=== PATIENT | male | born 1940 | race Caucasian/White ===

== ENCOUNTER 2018-10-02 10:02 | Day surgery (SDC) | payer OTHER, MEDICAID ==
[2018-09-23 15:34] LABS: ANION GAP 10 (5-15); CALCIUM 9.2 mg/dL (8.4-11.0); CHLORIDE 101 mmol/L (98-107); CREATININE 1.44 mg/dL (0.55-1.30); GLUCOSE 150 mg/dL (70-99); POTASSIUM 3.9 mmol/L (3.5-5.1); SODIUM SERUM 137 mmol/L (136-145); UREA NITROGEN, BLOOD 27 mg/dL (8-21)
[2018-09-23 15:59] LABS: BILIRUBIN,URINE NEGATIVE (NEGATIVE); BLOOD, URINE NEGATIVE (NEGATIVE); CLARITY/URINE CLEAR (CLEAR); COLOR,URINE YELLOW (YELLOW); GLUCOSE,URINE NEGATIVE (NEGATIVE); KETONES,URINE NEGATIVE (NEGATIVE); LEUKOCYTE ESTERASE ,URINE NEGATIVE (NEGATIVE); NITRITE, URINE NEGATIVE (NEGATIVE); PROTEIN URINE NEGATIVE (NEGATIVE); UROBILINOGEN,URINE 0.2 (0.2-1.0)
[2018-09-23 16:10] LABS: BASOPHILS % (AUTO) 0.4 % (0.0-2.0); EOSINOPHILS # (AUTO) 0.4 K/uL (0.0-0.4); HEMATOCRIT 43.8 % (36-54); HEMOGLOBIN 14.9 g/dL (14.0-18.0); LYMPHOCYTES # (AUTO) 1.4 K/uL (1.0-5.5); LYMPHOCYTES % (AUTO) 18.8 % (20.5-51.5); MEAN CORPUSCULAR HEMOGLOBIN 30 pg (27-31); MEAN CORPUSCULAR HGB CONC 34 % (32-36); MEAN CORPUSCULAR VOLUME 89 fL (79.0-98.0); MONOCYTES # (AUTO) 0.5 K/uL (0.0-1.0); MONOCYTES % (AUTO) 6.9 % (1.7-9.3); NEUTROPHILS # (AUTO) 5.1 K/uL (1.8-7.7); NEUTROPHILS % (AUTO) 67.9 % (40.0-70.0); PLATELET COUNT (AUTO) 275 K/uL (130-430); RED BLOOD CELL COUNT(AUTO) 4.92 MIL/uL (4.2-6.2); RED CELL DISTRIBUTION WIDTH 13.3 % (9.0-15.0); WHITE BLOOD COUNT (AUTO) 7.4 K/uL (4.8-10.8)
[~2018-10-02] VITALS: Ht 185.4 cm; Wt 117.9 kg
[2018-10-02] MEDS ORDERED: fentaNYL CITRATE/PF 100 MCG/2 ML AMP IVP PRN ×2 (10:30)
[2018-10-02] MEDS ORDERED: KETOROLAC TROMETHAMINE 30 MG VIAL IVP PRN (10:30)
[2018-10-02] MEDS ORDERED: ONDANSETRON HCL 4 MG/2 ML VIAL IVP PRN (10:30)
[2018-10-02] MEDS ORDERED: CEFAZOLIN SOD 2 GM in D5W 50 ML IV ONE (10:45)
[2018-10-02 11:00] LABS: INR 1.3 (0.80-1.20); PROTHROMBIN TIME 12.9 SECS (9.5-12.5)
[2018-10-02] MEDS ORDERED: POLYMYXIN 500,000/BACIT.10,000 UNITS in NS IRR 1 L IR ONE (12:20)
[2018-10-02] MEDS ORDERED: XALEYE OP (12:29)
[2018-10-02] MEDS ORDERED: WARF5TAB2 PO (12:29)
[2018-10-02] MEDS ORDERED: GLIP10TA11 PO (12:29)
[2018-10-02] MEDS ORDERED: ACET325T53 PO (12:29)
[2018-10-02] MEDS ORDERED: METF1000 PO (12:29)
[2018-10-02] MEDS ORDERED: FURO-149 PO (12:29)
[2018-10-02] MEDS ORDERED: MIRA50TA PO (12:29)
[2018-10-02] MEDS ORDERED: AZOEYE (12:29)
[2018-10-02] MEDS ORDERED: POTA20TA83 PO (12:29)
[2018-10-02] MEDS ORDERED: DOCU-144 PO (12:29)
[2018-10-02] MEDS ORDERED: LOSA100T3 PO (12:29)
[2018-10-02] MEDS ORDERED: AMLO5TAB4 PO (12:29)
[2018-10-02] MEDS: LR 1,000 ML IV SCH ×2 (13:41→23:21)
[2018-10-02] MEDS ORDERED: DIPHENHYDRAMINE HCL 25 MG CAPSULE PO PRN (13:45)
[2018-10-02] MEDS ORDERED: ACETAMINOPHEN 325 MG TABLET PO PRN ×2 (13:45→15:15)
[2018-10-02] MEDS ORDERED: OXYCODONE/ACETAMINOPHEN 5-325 TABLET PO PRN ×2 (13:45)
[2018-10-02 15:00] VITALS: BP_SYST 132
--- NOTE | 2018-10-02 15:09 | NUR ---
NOTE Rec'd report of pt from [facility]. Pt came to floor via bed. Right arm in sling and right shoulder dressing CDI at this time. Neuro checks done on right hand-WNL. Pt has Q-pump running at 4ml/hr at this time. No needs noted at this time. Unable to do admission assessment form, as pt is not in the system.
[2018-10-02] MEDS ORDERED: DEXTROSE 50% JECT 50 ML DISP.SYRIN IVP PRN (15:15)
--- NOTE | 2018-10-02 15:26 | NUR ---
CONSULT REASON FOR CONSULT: MEDICAL VEGETABLE FARM MANAGER PHYSICIAN: DR. GREEN ACCOUNTS RECEIVABLE REPRESENTATIVE PHONE NUMBER: [phone] ORDERING PHYSICIAN: DR. DE OLIVEIRA DOCTOR SAW THE PATIENT IN OR
[2018-10-02 15:51] VITALS: BP_SYST 107
[2018-10-02] MEDS: metFORMIN HCL 500 MG TABLET PO SCH (17:58)
[2018-10-02] MEDS ORDERED: WARFARIN SODIUM 5 MG TABLET PO SCH (18:00)
--- NOTE | 2018-10-02 18:00 | NUR ---
Note Pt resting in bed eating his dinner. Dr Hickman called and update on pt's status given. Pt's has his right arm in sling and pillow under right arm. Vital signs stable. Q-pump managing pt's pain at this time. No needs noted. Pt was checked on q1' and PRN for needs and care all shift. Right shoulder dressing CDI at this time. No needs noted. Call light within reach. Neuro checks done on right hand _ WNL all shift.
[2018-10-02 19:10] VITALS: BP_SYST 125
--- NOTE | 2018-10-02 19:10 | NUR ---
OPENING NOTE RECEIVED ENDORSEMENT REPORT FROM DAY SHIFT NURSE JERICHO AT BEDSIDE. PT IS AOX4, RESTING IN BED COMFORTABLY. CHEST RISE EVEN AND UNLABORED. NO SOB NOTED. NO DISTRESS NOTED. IV ON LEFT FA 20G, IV CLEAN, DRY AND INTACT. IV PATENT. PT'S RIGHT ARM IN SLING AND PILLOW UNDER RIGHT ARM. Q PUMP MANAGING PT'S PAIN AT THIS TIME. NO COMPLAINTS OF PAIN AT THIS TIME. NEURO CHECKS DONE ON RIGHT HAND, WNL. VITAL SIGNS WNL. INVENTORY OF BELONGINGS DONE. BELONGINGS AT BEDSIDE. CANE AT BEDSIDE. URINALS AT BEDSIDE. ORIENTED PT TO HOSPITAL ROOM. PT VERBALIZED UNDERSTANDING. PT INSTRUCTED TO USE CALL LIGHT/ ROOM PHONE TO CALL FOR ASSISTANCE. PT VERBALIZED UNDERSTANDING. PT INSTRUCTED OF SAFETY MEASURES. PT VERBALIZED UNDERSTANDING. SAFETY MEASURES IN PLACE. CALL LIGHT/ ROOM PHONE WITHIN REACH. BEDSIDE TABLE WITHIN REACH. BED WHEELS LOCKED, SIDE RAILS UP X3, BED IN LOWEST POSITION, BED ALARM ON. NO NEEDS AT THIS TIME. WILL CONTINUE TO MONITOR PT AND FOLLOW POC.
--- NOTE | 2018-10-02 20:20 | NUR ---
RN ROUNDS PT RESTING IN BED COMFORTABLY. CHEST RISE EVEN AND UNLABORED. NO SOB NOTED. NO DISTRESS NOTED. NO NEEDS AT THIS TIME. SAFETY MEASURES IN PLACE. WILL CONTINUE TO MONITOR PT AND FOLLOW POC.
[2018-10-02] MEDS ORDERED: LATANOPROST 2.5 ML DROPS (XALATAN) OP SCH (21:00)
[2018-10-02] MEDS: DORZOLAMIDE 2% OPHTHALMIC SOLN 5ML OP SCH (21:00)
[2018-10-02] MEDS: POTASSIUM CHLORIDE 20 MEQ TAB.PRT.SR PO SCH (21:39)
--- NOTE | 2018-10-02 21:43 | NUR ---
RN ROUNDS PT RESTING IN BED COMFORTABLY. CHEST RISE EVEN AND UNLABORED. NO SOB NOTED. NO DISTRESS NOTED. PT'S RIGHT ARM IN SLING AND PILLOW UNDER RIGHT ARM. Q PUMP MANAGING PT'S PAIN AT THIS TIME. NO COMPLAINTS OF PAIN AT THIS TIME. NEURO CHECKS DONE ON RIGHT HAND, WNL. VITAL SIGNS WNL. SCHEDULED MEDICATIONS ADMINISTERED ORDERED. BS 195, 2 UN NOVOLIN R ADMINISTERED, PT TOLERATED WELL. NO OTHER NEEDS AT THIS TIME. WILL CONTINUE TO MONITOR PT AND FOLLOW POC.
[2018-10-02] MEDS: INSULIN REGULAR, HUMAN 100 UNITS/ML, 10 ML VIAL (novoLIN R) SUBCUT PRN (21:46)
[2018-10-02 23:35] VITALS: BP_SYST 136
--- NOTE | 2018-10-02 23:45 | NUR ---
RN ROUNDS PT RESTING IN BED COMFORTABLY. CHEST RISE EVEN AND UNLABORED. NO SOB NOTED. NO DISTRESS NOTED. IVF INFUSING WELL. PT'S RIGHT ARM IN SLING AND PILLOW UNDER RIGHT ARM. Q PUMP MANAGING PT'S PAIN AT THIS TIME. NO COMPLAINTS OF PAIN AT THIS TIME. NEURO CHECKS DONE ON RIGHT HAND, WNL. SAFETY MEASURES IN PLACE. WILL CONTINUE TO MONITOR PT AND FOLLOW POC.
--- NOTE | 2018-10-03 02:08 | NUR ---
RN ROUNDS PT RESTING IN BED COMFORTABLY. CHEST RISE EVEN AND UNLABORED. NO SOB NOTED. NO DISTRESS NOTED. PT'S RIGHT ARM IN SLING AND PILLOW UNDER RIGHT ARM. Q PUMP MANAGING PT'S PAIN AT THIS TIME. NO COMPLAINTS OF PAIN AT THIS TIME. NEURO CHECKS DONE ON RIGHT HAND, WNL. SAFETY MEASURES IN PLACE. NO NEEDS AT THIS TIME. WILL CONTINUE TO MONITOR PT AND FOLLOW POC.
--- NOTE | 2018-10-03 03:09 | NUR ---
RN ROUNDS PT RESTING IN BED COMFORTABLY WITH EYES CLOSED. CHEST RISE EVEN AND UNLABORED. NO SOB NOTED. NO DISTRESS NOTED. SAFETY MEASURES IN PLACE. NO NEEDS AT THIS TIME. WILL CONTINUE TO MONITOR PT AND FOLLOW POC.
--- NOTE | 2018-10-03 05:20 | NUR ---
RN ROUNDS PT RESTING IN BED COMFORTABLY WITH EYES CLOSED. CHEST RISE EVEN AND UNLABORED. NO SOB NOTED. NO DISTRESS NOTED. NO S/S OF PAIN NOTED. SAFETY MEASURES IN PLACE. WILL CONTINUE TO MONITOR PT AND FOLLOW POC.
--- NOTE | 2018-10-03 06:20 | NUR ---
BS 113, NO COVERAGE
--- NOTE | 2018-10-03 06:54 | NUR ---
DR. DE OLIVEIRA CALLED FOR UPDATE ON PT, INFORMED MD PT WAS STABEL W/ NO COMPLAINTS OF PAIN. PT TO BE DISCHARGED AFTER BREAKFAST, FOLLOWUP WITH DR. GREEN FOR D/C
--- NOTE | 2018-10-03 06:59 | NUR ---
CLOSING NOTE WILL ENDORSE PT REPORT TO DAY SHIFT NURSE AT BEDSIDE. PT IS AOX4, RESTING IN BED COMFORTABLY. CHEST RISE EVEN AND UNLABORED. NO SOB NOTED. NO DISTRESS NOTED. IV ON LEFT FA 20G, IV CLEAN, DRY AND INTACT. IV PATENT. PT'S RIGHT ARM IN SLING AND PILLOW UNDER RIGHT ARM. Q PUMP MANAGING PT'S PAIN THROUGHOUT NIGHT. NEURO CHECKS DONE ON RIGHT HAND, WNL. ALL SCHEDULED MEDICATIONS ADMINISTERED. ALL NEEDS MET THROUGHOUT SHIFT. WILL CONTINUE TO MONITOR PT AND FOLLOW POC.
[2018-10-03 07:03] LABS: HEMOGLOBIN 13.1 g/dL (14.0-18.0); MEAN CORPUSCULAR HEMOGLOBIN 30 pg (27-31); MEAN CORPUSCULAR HGB CONC 34 % (32-36); MEAN CORPUSCULAR VOLUME 91 fL (79.0-98.0); RED BLOOD CELL COUNT(AUTO) 4.31 MIL/uL (4.2-6.2); WHITE BLOOD COUNT (AUTO) 9.1 K/uL (4.8-10.8)
[2018-10-03 07:04] LABS: BASOPHILS % (AUTO) 0.3 % (0.0-2.0); EOSINOPHILS # (AUTO) 0.2 K/uL (0.0-0.4); EOSINOPHILS % (AUTO) 2.4 % (0.0-4.0); LYMPHOCYTES # (AUTO) 1.3 K/uL (1.0-5.5); LYMPHOCYTES % (AUTO) 14.6 % (20.5-51.5); MONOCYTES # (AUTO) 0.8 K/uL (0.0-1.0); MONOCYTES % (AUTO) 9.1 % (1.7-9.3); NEUTROPHILS # (AUTO) 6.8 K/uL (1.8-7.7); NEUTROPHILS % (AUTO) 73.6 % (40.0-70.0); PLATELET COUNT (AUTO) 235 K/uL (130-430); RED CELL DISTRIBUTION WIDTH 13.3 % (9.0-15.0)
--- NOTE | 2018-10-03 07:10 | NUR ---
report received report received in bedside, patient is resting in bed, awake and alert, bed in the lowest position, bed alarm on, two side rails up, call light within reach, IV line clean and intact, allergy band on.
[2018-10-03 07:45] LABS: ANION GAP 10 (5-15); CHLORIDE 100 mmol/L (98-107); SODIUM SERUM 137 mmol/L (136-145)
[2018-10-03 07:46] LABS: ALANINE AMINOTRANSFERASE 17 U/L (12-78); ASPARTATE AMINOTRANSFERASE 13 U/L (10-37); CALCIUM 9.3 mg/dL (8.4-11.0); CREATININE 1.44 mg/dL (0.55-1.30); GLUCOSE 105 mg/dL (70-99); TOTAL BILIRUBIN 0.8 mg/dL (0.0-1.0); UREA NITROGEN, BLOOD 22 mg/dL (8-21)
[2018-10-03 08:06] LABS: INR 1.3 (0.80-1.20); PROTHROMBIN TIME 12.8 SECS (9.5-12.5)
[2018-10-03] MEDS ORDERED: NON-FORMULARY MEDICATION (Mirabegron (Myrbetriq) 50 MG) PO SCH (09:00)
[2018-10-03] MEDS ORDERED: amLODIPine BESYLATE 5 MG TABLET PO SCH (09:00)
[2018-10-03] MEDS ORDERED: LOSARTAN POTASSIUM 50 MG TABLET (COZAAR) PO SCH (09:00)
[2018-10-03] MEDS ORDERED: FUROSEMIDE 40 MG TABLET PO SCH (09:00)
[2018-10-03] MEDS ORDERED: DOCUSATE SODIUM 100 MG CAPSULE PO SCH (09:00)
--- NOTE | 2018-10-03 09:00 | NUR ---
opening note patient is resting in bed, A&Ox4, assessment completed, educated field supervisor seed production light system and plan of care, patient verbalized understanding, bed in the lowest position, bed alarm on, two side rails up, call light within reach, IV line clean and intact, allergy band on.
[2018-10-03] MEDS: metFORMIN HCL 500 MG TABLET PO SCH (09:02)
[2018-10-03 09:08] VITALS: BP_SYST 140
[2018-10-03] MEDS: POTASSIUM CHLORIDE 20 MEQ TAB.PRT.SR PO SCH (09:11)
[2018-10-03] MEDS: LR 1,000 ML IV SCH (09:11)
[2018-10-03] MEDS: DORZOLAMIDE 2% OPHTHALMIC SOLN 5ML OP SCH (09:12)
--- NOTE | 2018-10-03 09:12 | NUR ---
MEDICATION patient is resting in bed, educated on medication use and side effects, patient verbalized understanding and tolerated well, metformin and glipizide administered late because patient was not eating until now, bed in the lowest position, bed alarm on, two side rails up, call light within reach, IV line clean and intact, allergy band on.
--- NOTE | 2018-10-03 10:29 | NUR ---
Nutrition Update Dennis Scale 18 noted. Pt admitted for complete rotator cuff tear/rupture of R shoulder. Diet: [facility], [place] BMI: 34.3 kg/m2 RD to follow per nutrition care standards.
--- NOTE | 2018-10-03 11:37 | NUR ---
Dr Waylon salcedo in regards to patient discharge Addendum: 10/03/18 at 1505 by Kyleigh Phelan RN [id number] Dr Waylon moned with discharge
--- NOTE | 2018-10-03 11:45 | NUR ---
accuchek patient is resting in bed, accuchek done, sliding scale needed per MD order but patient refused education was provided about benefits of sliding scale, patient verbalized understanding, bed in the lowest position, bed alarm on, two side rails up, call light within reach, IV line clean and intact, allergy band on.
[2018-10-03] MEDS: INSULIN REGULAR, HUMAN 100 UNITS/ML, 10 ML VIAL (novoLIN R) SUBCUT PRN (11:58)
--- NOTE | 2018-10-03 12:20 | NUR ---
Dr Connors rounds assessed patient in room
[2018-10-03 12:24] VITALS: BP_SYST 126
[2018-10-03 13:08] VITALS: BP_SYST 126
--- NOTE | 2018-10-03 14:30 | NUR ---
D/C Patient Patient given medication reconciliation form and D/C instructions. Exit Care provided. Patient verbalized understanding. MD discussed with patient the results and treatment provided. Ambulatory with steady gait for discharge to home. Patient in stable condition, ID band removed. IV catheter removed, intact and dressing applied, no active bleeding. Rx of Percocet and Vistaril given. Patient educated on pain management. All belongings sent with patient. Patient went home with Q-pump, site was intact and clean with no drainage or bleeding. Patient has appointment with Dr Hickman on Friday10/05/18.
== END 2018-10-03 14:30 | disposition home or self-care (01) ==
LOC: SDS 10:02 → SMU 10:03 → SDS 10-03 14:30
PROVIDERS: ATTEND Orthopaedic Surgery
DX: M75.101 Unspecified rotator cuff tear or rupture of right shoulder, not specified as traumatic (principal); M75.41 Impingement syndrome of right shoulder; M19.011 Primary osteoarthritis, right shoulder; E11.9 Type 2 diabetes mellitus without complications; Z79.01 Long term (current) use of anticoagulants; I10 Essential (primary) hypertension; M19.90 Unspecified osteoarthritis, unspecified site; Z79.899 Other long term (current) drug therapy; Z98.890 Other specified postprocedural states; Z79.84 Long term (current) use of oral hypoglycemic drugs; Z88.2 Allergy status to sulfonamides; Z88.8 Allergy status to other drugs, medicaments and biological substances; E66.9 Obesity, unspecified; I49.9 Cardiac arrhythmia, unspecified
CPT/HCPCS: 23120; 23130; 23412; 36415 ×2; 71046; 80048; 80053; 81003; 82947; 82962; 85025 ×2; 85610; J0690; J2405; J7060; J7120 ×2; L3650